=== PATIENT | male | born 1940 | race African-American/Black ===

== ENCOUNTER 2016-09-29 14:44 | Inpatient (IN) ==
[2016-09-29] MEDS ORDERED: SODIUM CHLORIDE 0.9% 1,000 ML IV STA (15:20)
[2016-09-29] MEDS ORDERED: ONDANSETRON 4 MG/2 ML VIAL IV STA (15:20)
[2016-09-29] MEDS ORDERED: ONDANSETRON 4 MG/2 ML VIAL ONE (15:24)
--- NOTE | 2016-09-29 16:07 | XRay Report ---
XR abdomen 2V Indication: Nausea, vomiting and diarrhea. Abdomen 3 views: Surgical clips left upper quadrant noted. Normal amount of stool and gas shown in the colon. No small bowel dilatation. No evidence of free air. Severe degenerative changes lumbar spine noted. Impression: Nonspecific bowel gas pattern. PROCEDURE INTERPRETED AT [facility] DEPARTMENT OF RADIOLOGY Final Report Signed by: Garth Mao M.D.
--- NOTE | 2016-09-29 16:11 | Emergency Department Note ---
Marlene Betancourt Gwan, am scribing for, and in the presence of, Armin Mendoza MD 15:11 . Kelly Betancourt James D, MD, personally performed the services described in this documentation, ascribed by Drea Rosario in my presence, and it is both accurate and complete 611 . Arrival - Arrival ED Nursing Triage Note: Nausea and vomiting onset approx 1315 - pt denies abd pain - pt states that he has vomited x 3 - denies any nausea at present Mode of Arrival: Stretcher Limitations: No Limitations Source: Patient, Old Records Reviewed, RN Notes Reviewed - History of Present Illness Onset (ago): hour(s) Consistency: constant Severity: moderate <Armin Mendoza - Last Filed: 09/29/16 18:02> <Wilfrid Woodruff - Last Filed: 09/29/16 20:13> - Arrival Chief Complaint: Nausea/Vomiting/Diarrhea Stated Complaint: nausea and vomiting - History of Present Illness HPI Narrative: Patient is a 76 y/o male who presents to the ED with a c/o N/V with an onset 1315 today. He noted that he feels as if the room is spinning. 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 continued to state that pt called her and stated that he was feeling sick prompting their visit to the ED for further evaluation. Family stated that pt c/o abd pain but while in ED pt denies any abd pain. Patient denies that this has never happened before. Pt is followed by Dr. Carrillo. (Drea Rosario) Patient is a 76 y/o male who presents to the ED with a c/o N/V with an onset 1315 today. He noted that he feels as if the room is spinning. 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 continued to state that pt called her and stated that he was feeling sick prompting their visit to the ED for further evaluation. Family stated that pt c/o abd pain but while in ED pt denies any abd pain. Patient denies that this has never happened before. Pt is followed by Dr. Carrillo. (Armin Mendoza) Allergies/Adverse Reactions: Allergies Allergy/AdvReac Type Severity Reaction Status Date / Time Penicillins Allergy RASH Verified 09/29/16 14:56 Home Medications: Home Medications Medication Instructions Recorded Confirmed Type Atorvastatin [Lipitor] 40 mg PO BEDTIME 09/29/16 09/29/16 History Cetirizine Tab [ZyrTEC Tab] 10 mg PO DAILY PRN 09/29/16 09/29/16 History Furosemide [Furosemide] 40 mg PO BID 09/29/16 09/29/16 History Glyburide/Metformin HCl 2 each PO BID 09/29/16 09/29/16 History [Glyburide-Metformin 5-500 mg] Lisinopril [Lisinopril] 20 mg PO DAILY 09/29/16 09/29/16 History Potassium Chloride 20 meq PO BID 09/29/16 09/29/16 History Spironolactone [Spironolactone] 12.5 mg PO DAILY 09/29/16 09/29/16 History Review of System - Review of System 12 point system: reviewed and no additional remarkable complaints except as stated - Review of System Constitutional: Absent: chills, fever Eyes: Absent: discharge Head/Ears/Nose/Throat: Absent: earache Respiratory: Absent: cough Cardiovascular: Absent: chest pain Gastrointestinal: Present: as per HPI, nausea, vomiting. Absent: abdominal pain , diarrhea Genitourinary male: Absent: urgency, dysuria Musculoskeletal: Absent: arm pain, back pain, leg pain, neck pain Skin: Absent: rash, lesions Neurological: Absent: headache, weakness <Armin Mendoza - Last Filed: 09/29/16 18:02> Medical,Surgical,& Family Hx - Medical History Cardio: History of: CHF, Hypertension Endocrine: History of: Diabetes Mellitus (NIDDM), Dyslipidemia - Social History Smoking Status: Unknown if ever smoked Frequency of Alcohol Use: None Type of Drug Use: None <Armin Mendoza - Last Filed: 09/29/16 18:02> Exam <Armin Mendoza - Last Filed: 09/29/16 18:02> <Wilfrid Woodruff - Last Filed: 09/29/16 20:13> Physical Examination: GENERAL: This is a black male in no apparent distress. VITAL SIGNS: HEENT: Head is normocephalic and atraumatic. Pupils are equally round and reactive to light. Extraocular movement are intact. TMs are clear bilaterally peer oropharynx is benign with moist mucous membranes. NECK: Neck is soft and supple without tenderness. There are no masses. There is no lymphadenopathy. LUNGS: Lungs are clear to auscultation bilaterally. Chest rises symmetrically. There is no chest wall tenderness. CV: Heart is regular rate and rhythm without murmurs, rubs, or gallops. ABDOMEN: Abdomen is soft, non-tender to palpation. There are no abnormal masses palpated. There is no organomegaly. Bowel sounds are present and active. SKIN: Skin is warm and dry. No rash. EXTREMITIES: Patient has full range of motion without tenderness. There is no pedal edema. NEUROLOGIC: Awake, alert, and oriented x4. Cranial nerves II through XII are grossly intact. There are no motorsensory deficits. PSYCHIATRIC: Normal affect. Normal mood. (Drea Rosario) GENERAL: This is a black male in no apparent distress. VITAL SIGNS: HEENT: Head is normocephalic and atraumatic. Pupils are equally round and reactive to light. Extraocular movement are intact. TMs are clear bilaterally peer oropharynx is benign with moist mucous membranes. NECK: Neck is soft and supple without tenderness. There are no masses. There is no lymphadenopathy. LUNGS: Lungs are clear to auscultation bilaterally. Chest rises symmetrically. There is no chest wall tenderness. CV: Heart is regular rate and rhythm without murmurs, rubs, or gallops. ABDOMEN: Abdomen is soft, non-tender to palpation. There are no abnormal masses palpated. There is no organomegaly. Bowel sounds are present and active. SKIN: Skin is warm and dry. No rash. EXTREMITIES: Patient has full range of motion without tenderness. There is no pedal edema. NEUROLOGIC: Awake, alert, and oriented x4. Cranial nerves II through XII are grossly intact. There are no motorsensory deficits. PSYCHIATRIC: Normal affect. Normal mood. (Armin Mendoza) Vital Signs: Vital Signs Temperature 100.9 F H 09/29/16 15:04 Pulse Rate 123 H 09/29/16 18:30 Respiratory Rate 20 09/29/16 18:30 Blood Pressure 109/71 09/29/16 18:30 O2 Sat by Pulse Oximetry 90 L 09/29/16 18:30 Course <Armin Mendoza - Last Filed: 09/29/16 18:02> - Reevaluation(s) Time: 19:22 - Consultations Time: 19:21 Time: 20:05 Time: 20:12 <Wilfrid Woodruff - Last Filed: 09/29/16 20:13> - Reevaluation(s) Reevaluation #1: The patient's legs are fairly swollen with left slightly larger than right and small amount of serosanguineous drainage on the left sock. The legs are reddened and edematous suggesting cellulitis which may be the etiology of the fever. (Wilfrid Woodruff) - Consultations Consultation #1: We will admit to the hospitalist service. The patient does see Dr. Thierry Puentes for his legs and a consult may be placed to him at the discretion of the hospitalist service. (Wilfrid Woodruff) Consultation #2: No joint on the hospitalist. I am going to admit to Dr. Calles who has been 1 of the day hospitalists today. (Wilfrid Woodruff) Consultation #3: In the process of admitting the patient, Dr. Avalos appeared and said that the patient would indeed go to Dr. Calles. I finished up some baseline orders. He is seeing the patient now. (Wilfrid Woodruff) Results - Labs CBC & BMP: 09/29/16 16:46 09/29/16 16:46 Lab Results: I have reviewed the patients labs - Diagnostic Findings Procedure: Abdominal x-ray: report reviewed by me, image reviewed by me ( Nonspecific bowel gas pattern. ), CT: report reviewed by me, image reviewed by me (Head: Generalized atrophy and prominent white matter changes likely attributable to chronic microvascular ischemia. Polypoid formation in the right ethmoid sinus. ) <Armin Mendoza - Last Filed: 09/29/16 18:02> - Labs CBC & BMP: 09/29/16 16:46 09/29/16 16:46 Lab Results: I have reviewed the patients labs <Wilfrid Woodruff - Last Filed: 09/29/16 20:13> - Labs Labs: Lab Results WBC 12.4 T/CUMM (4-12) H 09/29/16 16:46 RBC 4.79 MC/CUMM (3.8-5.5) 09/29/16 16:46 Hgb 13.7 GM/DL (14.0-18.0) L 09/29/16 16:46 Hct 40.5 VOL% (42.0-52.0) L 09/29/16 16:46 MCV 84.6 FL (87-102) L 09/29/16 16:46 MCH 29 PG (27-34) 09/29/16 16:46 MCHC 33.8 GM/DL (32-36) 09/29/16 16:46 RDW 13.6 % (9.3-17.3) 09/29/16 16:46 Plt Count 250 T/CUMM (130-400) 09/29/16 16:46 MPV 10.7 FL (9.6-12.0) 09/29/16 16:46 Neut % (Auto) 87.7 % (38.7-73.9) H 09/29/16 16:46 Lymph % (Auto) 4.0 % (21.2-54.2) L 09/29/16 16:46 Murray % (Auto) 6.2 % (1.7-12.7) 09/29/16 16:46 Eos % (Auto) 0.5 % (0.00-10.9) 09/29/16 16:46 Baso % (Auto) 0.5 % (0.0-0.8) 09/29/16 16:46 Neut # (Auto) 10.8 10*3/uL (1.4-7.4) H 09/29/16 16:46 Lymph # (Auto) 0.5 10*3/uL (1.4-4.0) L 09/29/16 16:46 Murray # (Auto) 0.8 10*3/uL (0.11-0.8) 09/29/16 16:46 Eos # (Auto) 0.1 10*3/uL (0.0-0.87) 09/29/16 16:46 Baso # (Auto) 0.1 10*3/uL (0.0-0.2) 09/29/16 16:46 Total Counted 100 09/29/16 16:46 Immature Gran % 1.1 % 09/29/16 16:46 Nucleated RBC % 0.0 /100WBC 09/29/16 16:46 Immature Gran # 0.14 # 09/29/16 16:46 Segmented Neutrophils 93 % (50-85) H 09/29/16 16:46 Band Neutrophils 2 % (0-10) 09/29/16 16:46 Lymphocytes 4 % (20-55) L 09/29/16 16:46 Monocytes 1 % (2-15) L 09/29/16 16:46 Nucleated RBCs # 0.00 10*3/uL 09/29/16 16:46 Platelet Estimate Normal 09/29/16 16:46 Sodium 138 MMOL/L (136-145) 09/29/16 16:46 Potassium 4.0 MMOL/L (3.5-5.1) 09/29/16 16:46 Chloride 101 MMOL/L (98-107) 09/29/16 16:46 Carbon Dioxide 29 MMOL/L (21-32) 09/29/16 16:46 Anion Gap 12.0 MMOL/L (5.0-15.0) 09/29/16 16:46 BUN 11 MG/DL (7-18) 09/29/16 16:46 Creatinine 1.00 MG/DL (0.70-1.30) 09/29/16 16:46 GFR Calculation 113 ML/MIN 09/29/16 16:46 BUN/Creatinine Ratio 11.00 RATIO (6.00-20.00) 09/29/16 16:46 Glucose 212 MG/DL (74-106) H 09/29/16 16:46 Calculated Osmolality 279.7 MOS/KG (273-304) 09/29/16 16:46 Lactic Acid 1.7 MMOL/L (0.4-2.0) 09/29/16 18:11 Calcium 9.3 MG/DL (8.5-10.1) 09/29/16 16:46 Total Bilirubin 0.80 MG/DL (0.2-1.0) 09/29/16 16:46 AST 14 U/L (0-37) 09/29/16 16:46 ALT 23 U/L (16-61) 09/29/16 16:46 Alkaline Phosphatase 97 U/L (45-117) 09/29/16 16:46 Total Protein 6.5 G/DL (6.4-8.3) 09/29/16 16:46 Albumin 3.3 G/DL (3.4-5.0) L 09/29/16 16:46 Globulin 3.2 G/DL (2.3-3.5) 09/29/16 16:46 Albumin/Globulin Ratio 1.0 RATIO (1.1-2.2) L 09/29/16 16:46 Urine Color Yellow (Yellow) 09/29/16 18:29 Urine Appearance Clear (Clear) 09/29/16 18:29 Urine pH 5.0 (4.5-8.0) 09/29/16 18:29 Ur Specific [place] 1.009 (1.001-1.035) 09/29/16 18:29 Urine Protein Negative MG/DL 09/29/16 18:29 Urine Glucose (UA) 50 mg/dL (Negative) 09/29/16 18:29 Urine Ketones Negative mg/dL (Negative) 09/29/16 18:29 Urine Blood Small mg/dL (Negative) 09/29/16 18:29 Urine Nitrate Negative (Negative) 09/29/16 18:29 Urine Bilirubin Negative mg/dL (Negative) 09/29/16 18:29 Urine Urobilinogen < 2.0 EU/DL (0.2-1.0) H 09/29/16 18:29 Urine Leukocytes Negative Pon[place]/ul (Negative) 09/29/16 18:29 Urine RBC <1 /HPF (0-4) 09/29/16 18:29 Urine Mucus Occasional /LPF (Occasional) 09/29/16 18:29 Ur Culture Indicated? Not indicated 09/29/16 18:29 (Wilfrid Woodruff) Disposition Case discussed with: patient <Armin Mendoza - Last Filed: 09/29/16 18:02> Time of Disposition: 19:22 <Wilfrid Woodruff - Last Filed: 09/29/16 20:13> Clinical Impression: Nausea and vomiting, Fever, Altered mental status, Cellulitis Disposition: Still a Patient Condition: Stable
--- NOTE | 2016-09-29 16:15 | CT Report ---
CT of the head without contrast. Indication: Vertigo. No prior studies. There is heavy calcific plaque present within the internal carotid arteries. There is polypoid mucosal thickening within the right ethmoid sinuses. The calvarium is intact. The internal auditory canals are of normal diameter. There is generalized prominence of the ventricles and sulci consistent with atrophy of aging. There is a partial empty sella. There are prominent areas of low density in the periventricular white matter, likely attributable to chronic microvascular ischemia. No mass effect or midline shift. No cortical infarct is seen at this time. Impression: Generalized atrophy and prominent white matter changes likely attributable to chronic microvascular ischemia. Polypoid formation in the right ethmoid sinus. The CT exam was performed using one or more of the following dose reduction techniques: Automated exposure control, adjustment of the mA and/or kV according to patient size, or use of iterative reconstruction technique. PROCEDURE INTERPRETED AT [facility] DEPARTMENT OF RADIOLOGY Final Report Signed by: Dr. Amna Leong
[2016-09-29 17:04] LABS: Basophils # 0.1 10*3/uL (0.0-0.2); Basophils % 0.5 % (0.0-0.8); Eosinophils # 0.1 10*3/uL (0.0-0.87); Eosinophils % 0.5 % (0.00-10.9); Hematocrit 40.5 VOL% (42.0-52.0); Hemoglobin 13.7 GM/DL (14.0-18.0); Immature Granulocytes % 1.1 %; Immature Granulocytes Absolute 0.14 #; Lymphocytes # 0.5 10*3/uL (1.4-4.0); Mean Corpuscular HGB Conc 33.8 GM/DL (32-36); Mean Corpuscular Hemoglobin 29 PG (27-34); Mean Corpuscular Volume 84.6 FL (87-102); Mean Platelet Volume 10.7 FL (9.6-12.0); Monocytes # 0.8 10*3/uL (0.11-0.8); Monocytes % 6.2 % (1.7-12.7); Neutrophils # 10.8 10*3/uL (1.4-7.4); Neutrophils % 87.7 % (38.7-73.9); Platelet Count 250 T/CUMM (130-400); Red Blood Count 4.79 MC/CUMM (3.8-5.5); Red Cell Distribution Width 13.6 % (9.3-17.3); White Blood Count 12.4 T/CUMM (4-12)
[2016-09-29 17:31] LABS: Albumin 3.3 G/DL (3.4-5.0); Bilirubin,Total 0.8 MG/DL (0.2-1.0); Calcium 9.3 MG/DL (8.5-10.1); Osmolality,Calculated 279.7 MOS/KG (273-304); Total Protein 6.5 G/DL (6.4-8.3)
[2016-09-29] MEDS ORDERED: ACETAMINOPHEN 500 MG TABLET ONE (17:40)
[2016-09-29] MEDS ORDERED: ACETAMINOPHEN 500 MG TABLET PO STA (17:57)
[2016-09-29 18:42] LABS: Apearance,Urine CLEAR (Clear); Bilirubin,Urine Negative (Negative); Blood, Urine Small mg/dL (Negative); Glucose,Urine (UA) 50 mg/dL (Negative); Ketones,Urine Negative (Negative); Mucus,Urine Occasional /LPF (Occasional); Nitrite,Urine Negative (Negative); Protein,Urine Negative; RBC,Urine <1 /HPF (0-4); Urine Color Yellow (Yellow); Urine Specific Gravity 1.009 (1.001-1.035); Urine Urobilinogen < 2.0 EU/DL (0.2-1.0)
[2016-09-29 18:44] LABS: Band Neutrophils 2 % (0-10); Lymphocytes 4 % (20-55); Platelet Estimate Normal; Segmented Neutrophils 93 % (50-85); Total Cells Counted 100
--- NOTE | 2016-09-29 18:51 | XRay Report ---
Exam: XR chest 1V portable Date: 09/29/2016 6:03 PM Indication: Fever Comparison: None Technical: AP portable Findings: Atelectatic change present in the right base with some small nodes in the right infrahilar region. Athletic change present left base. External cardiac leads are present. Arthritic change present over the shoulders right greater than left. No pneumothorax Impression: 1. Bibasilar atelectatic change and tiny effusions 2. Mild cardiomegaly and calcified nodes in the right perihilar region. PROCEDURE INTERPRETED AT [facility] DEPARTMENT OF RADIOLOGY Final Report Signed by: Dr. Andrew Ling
[2016-09-29] MEDS ORDERED: IBUPROFEN 800 MG TABLET ONE (19:15)
[2016-09-29] MEDS ORDERED: IBUPROFEN 800 MG TABLET PO STA (19:20)
[2016-09-29] MEDS ORDERED: DEXTROSE 50% 25 GM/50 ML VIAL IV PRN (20:06)
[2016-09-29] MEDS ORDERED: GLUCAGON 1 MG VIAL IM PRN (20:06)
[2016-09-29] MEDS ORDERED: diphenhydrAMINE CAP 25 MG CAPSULE PO PRN (20:06)
[2016-09-29] MEDS ORDERED: DOCUSATE SODIUM 100 MG CAPSULE PO PRN (20:06)
[2016-09-29] MEDS ORDERED: ZALEPLON 5 MG CAPSULE PO PRN (20:06)
[2016-09-29] MEDS ORDERED: BISACODYL 5 MG TABLET PO PRN (20:06)
[2016-09-29] MEDS ORDERED: ONDANSETRON 4 MG/2 ML VIAL IV PRN (20:06)
--- NOTE | 2016-09-29 20:51 | Hospitalist History & Physical ---
Assessment and Plan (1) Stasis dermatitis of both legs Status: Acute Assessment and plan: Bedrest with leg raising would help with the swelling. Patient has long been followed by surgery. The possible need to see him again in the hospital if the condition does not improve. Encourage aggressive care with the stasis dermatitis using emollients. Try to disquamate him as much as possible. Current Visit: Yes (2) Nausea and vomiting Status: Acute Assessment and plan: Use of Zofran for nausea and vomiting or is in the hospital. This does not seem to be a major problem at the time of my assessment. Orders for Zofran already been put in by Dr. Woodruff Current Visit: Yes (3) Fever Status: Acute Assessment and plan: Follow the fever curve. Patient will be on antibiotics to cover the cellulitis. Current Visit: Yes (4) Cellulitis Status: Acute Assessment and plan: This is Bisno's syndrome complicated chronic leg edema. Patient has severe stasis dermatitis alongside this. We need to broaden antibiotics skin care and reassess the patient in the coming 2448 hrs. Duration of hospital stay should be at least 3 days. Current Visit: Yes (5) Diabetes mellitus type 2 in obese Status: Acute Assessment and plan: With the patient on 1800 ADA diet. Accu-Cheks q. before meals and at bedtime. Resume home medications. We will can use intermediate insulin coverage for mealtime blood sugar checks. I did not try to ask the patient about his home diet is not very conversant about it and I also do not believe that he never been talked to before. Noncompliance with her dietary discipline is a possibility. Current Visit: Yes History of Present Illness Chief complaint: Nausea vomiting abdominal pain and fever History of present illness: Mr. Chaves is a 76 year old male who presents to the ED with a c/o N/V with an onset 1315 today. He noted that he feels as if the room is spinning. 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 continued to state that pt called her and stated that he was feeling sick prompting their visit to the ED for further evaluation. Family stated that pt c/o abd pain but while in ED pt denies any abd pain. Patient denies that this has never happened before. Pt is followed by Dr. Carrillo. On assessment at the bedside and noticed that the patient is incontinent of urine and states that he could not urinate in a jug this why he wetted himself. Denies any headaches denies and ongoing dizziness that is at this point even though that was reported on presenting illness the emergency room. I could not do a Oxford-Hallpike maneuver because the patient is quite incoordinated very elevated. There is slight concern of possibility of benign paroxysmal positional vertigo. Patient is on Zyrtec at home suggesting possibility of ongoing allergy issues but she is also on Spironolactone diuretic that can instigated benign paroxysmal positional vertigo. Patient has chronic leg edema with severe stasis dermatopathy and there is suggestion of cellulitis his lower extremities. His could explain the fever as well as elevated white count. I discussed the case with Dr. Woodruff the attending physician in the emergency who 100 the patient to the service. His concerns are the same. Home Medications Medication Instructions Recorded Confirmed Type Atorvastatin [Lipitor] 40 mg PO BEDTIME 09/29/16 09/29/16 History Cetirizine Tab [ZyrTEC Tab] 10 mg PO DAILY PRN 09/29/16 09/29/16 History Furosemide [Furosemide] 40 mg PO BID 09/29/16 09/29/16 History Glyburide/Metformin HCl 2 each PO BID 09/29/16 09/29/16 History [Glyburide-Metformin 5-500 mg] Lisinopril [Lisinopril] 20 mg PO DAILY 09/29/16 09/29/16 History Potassium Chloride 20 meq PO BID 09/29/16 09/29/16 History Spironolactone [Spironolactone] 12.5 mg PO DAILY 09/29/16 09/29/16 History Allergies Allergy/AdvReac Type Severity Reaction Status Date / Time Penicillins Allergy RASH Verified 09/29/16 14:56 Medical,Surgical,& Family Hx - Medical History Cardio: History of: CHF, Hypertension Endocrine: History of: Diabetes Mellitus (NIDDM), Dyslipidemia - Social History Smoking Status: Unknown if ever smoked Frequency of Alcohol Use: None Type of Drug Use: None Review of systems: 12 point system assessment is done. Significant for the chief complaint history of presenting illness in the past medical history. Was turns of the most of these points will be the cellulitis skin soft tissue infection possibly bacteremia. Exam - Constitutional Vitals: Period Temp Pulse Resp BP Sys/Redding Pulse Ox Last 24 Hr 100.9 F-100.9 F 114-123 20-20 109-181/65-91 90-95 General appearance: over weight - Head Head exam: Present: normocephalic, atraumatic - Eye Eye exam: Present: EOMI Pupils: Present: NUBIA - ENT ENT exam: Present: normal oropharynx - Neck Neck exam: Present: normal inspection, other (Supple neck midline trachea no adenopathy no thyromegaly) - Respiratory Respiratory exam: Present: clear to auscultation bilaterally, other (End expiratory rales are heard bibasilarly) - Cardiovascular Cardiovascular exam: Present: other (EKG will be done patient has regular rhythm with occasional ectopy could be having PVCs or PACs with aberrant conduction) - GI/Abdominal GI/Abdominal exam: Present: normal bowel sounds, soft, other (No guarding) - Extremities Exam Extremities exam: Present: other (Significant stasis dermatitis chronic leg edema with wound VAC change to the skin evidence of redness suggesting cellulitis) - Neurological Exam Neurological exam: Present: alert, oriented X3, CN II-XII intact - Psychiatric Psychiatric exam: Present: normal affect, normal mood - Skin Skin exam: Present: normal color, warm, dry Results - Labs CBC & BMP: 09/29/16 16:46 09/29/16 16:46 Lab Results: I have reviewed the past 24 hour labs
[2016-09-29] MEDS: LEVOFLOXACIN INJ 750 MG in PREMIX 1 EACH IV SCH (23:01)
[2016-09-29] MEDS: INSULIN LISPRO 100 UNIT/ML SUBCUT SCH (23:04)
[2016-09-30] MEDS: VANCOMYCIN INJ 1,750 MG in SODIUM CHLORIDE 0.9% 500 ML IV SCH ×3 (01:12→22:24)
[2016-09-30 05:35] LABS: Basophils # 0.1 10*3/uL (0.0-0.2); Basophils % 0.6 % (0.0-0.8); Eosinophils # 0.3 10*3/uL (0.0-0.87); Eosinophils % 3.2 % (0.00-10.9); Hematocrit 38.2 VOL% (42.0-52.0); Hemoglobin 12.5 GM/DL (14.0-18.0); Immature Granulocytes % 0.6 %; Immature Granulocytes Absolute 0.06 #; Lymphocytes # 0.7 10*3/uL (1.4-4.0); Lymphocytes % 6.9 % (21.2-54.2); Mean Corpuscular HGB Conc 32.7 GM/DL (32-36); Mean Corpuscular Hemoglobin 28 PG (27-34); Mean Corpuscular Volume 85.8 FL (87-102); Mean Platelet Volume 11.2 FL (9.6-12.0); Monocytes # 0.8 10*3/uL (0.11-0.8); Monocytes % 8.4 % (1.7-12.7); Neutrophils # 7.8 10*3/uL (1.4-7.4); Neutrophils % 80.3 % (38.7-73.9); Platelet Count 231 T/CUMM (130-400); Red Blood Count 4.45 MC/CUMM (3.8-5.5); Red Cell Distribution Width 13.7 % (9.3-17.3); White Blood Count 9.8 T/CUMM (4-12)
[2016-09-30 06:01] LABS: Calcium 8.6 MG/DL (8.5-10.1); Osmolality,Calculated 283.3 MOS/KG (273-304); Potassium 3.9 MMOL/L (3.5-5.1)
--- NOTE | 2016-09-30 09:50 | Hospitalist Progress Note ---
Assessment and Plan (1) Nausea and vomiting Status: Acute Assessment and plan: Better after multiple bowel movements overnight Current Visit: Yes (2) Fever Status: Acute Assessment and plan: Believed to be secondary to cellulitis Current Visit: Yes (3) Cellulitis Status: Acute Assessment and plan: Unsure about this BLE changes appear very chronic A little warm but equal on both sides Difficult to gauge from family how different his legs look today compared to today after antibiotics Followed in clinic by Dhaval weekly, will get assistance Current Visit: Yes (4) Stasis dermatitis of both legs Status: Acute Assessment and plan: Followed in clinic by Dhaval weekly, will get assistance Current Visit: Yes (5) Diabetes mellitus type 2 in obese Status: Acute Assessment and plan: SSI Current Visit: Yes Hospitalist: Subjective Interval history: No acute events overnight. Afebrile since yesterday evening. He denies any pain. Reports that he feels better today. Exam - Constitutional Vitals: Period Temp Pulse Resp BP Sys/[place] Pulse Ox Last 24 Hr 98.4 F-102.4 F 100-123 18-20 97-181/57-91 89-96 General appearance: over weight - Head Head exam: Present: normocephalic, atraumatic - Eye Eye exam: Present: EOMI Pupils: Present: NUBIA - ENT ENT exam: Present: normal exam - Neck Neck exam: Present: normal inspection - Respiratory Respiratory exam: Present: clear to auscultation bilaterally. Absent: rhonchi, wheezes - Cardiovascular Cardiovascular exam: Present: regular rate and rhythm - GI/Abdominal GI/Abdominal exam: Present: normal bowel sounds, soft. Absent: tenderness, rebound - Extremities Exam Extremities exam: Present: normal inspection - Back Exam Back exam: Present: normal inspection - Neurological Exam Neurological exam: Present: alert, oriented X3 - Psychiatric Psychiatric exam: Present: normal affect, normal mood - Skin Skin exam: Present: warm, intact Results - Labs CBC & BMP: 09/30/16 04:38 09/30/16 04:38
[2016-09-30] MEDS ORDERED: CHLORHEXIDINE 4% SOLN 118 ML BOTTLE TOP ONE (09:59)
[2016-09-30] MEDS: PANTOPRAZOLE 40 MG TABLET PO SCH (10:03)
[2016-09-30] MEDS: INSULIN LISPRO 100 UNIT/ML SUBCUT SCH ×4 (10:04→20:32)
--- NOTE | 2016-09-30 10:04 | General Surgery Consult Note ---
Assessment and Plan - Time spent with patient Time spent with patient: Less than 30 minutes (1) Stasis dermatitis of both legs Status: Acute Assessment and plan: Impression: Chronic venous stasis disease of the legs with ulcer left and dermatitis compressive therapy Current Visit: Yes (2) Cellulitis Status: Acute Assessment and plan: Questional cellulitis of the left leg Plan. Local compressive treatement and observation Current Visit: Yes Qualifiers: Site of cellulitis: extremity (3) Diabetes mellitus type 2 in obese Status: Acute Assessment and plan: Insulin dependent diabetis Need good control. Current Visit: Yes History of Present Illness Chief complaint: Chronic swelling of the legs left greather than right History of present illness: Mr. Chaves is a 76 year old male AA who has a long history of chronic venous stasis disease ofthe legs with ulcers of the left. Has been seen [facility] by Dr. Puentes with good healing. Asked to see for possible cellulits of the left leg. He denies any rest pain symptoms. Home Medications Medication Instructions Recorded Confirmed Type Atorvastatin [Lipitor] 40 mg PO BEDTIME 09/29/16 09/29/16 History Cetirizine Tab [ZyrTEC Tab] 10 mg PO DAILY PRN 09/29/16 09/29/16 History Furosemide [Furosemide] 40 mg PO BID 09/29/16 09/29/16 History Glyburide/Metformin HCl 2 each PO BID 09/29/16 09/29/16 History [Glyburide-Metformin 5-500 mg] Lisinopril [Lisinopril] 20 mg PO DAILY 09/29/16 09/29/16 History Potassium Chloride 20 meq PO BID 09/29/16 09/29/16 History Spironolactone [Spironolactone] 12.5 mg PO DAILY 09/29/16 09/29/16 History Allergies Allergy/AdvReac Type Severity Reaction Status Date / Time Penicillins Allergy RASH Verified 09/29/16 14:56 Medical,Surgical,& Family Hx - Medical History Cardio: History of: CHF, Hypertension Endocrine: History of: Diabetes Mellitus (IDDM) ("i use it if i think i need it "), Diabetes Mellitus (NIDDM), Dyslipidemia - Social History Smoking Status: Unknown if ever smoked Frequency of Alcohol Use: None Type of Drug Use: None - Musculoskeletal Musculoskeletal: Present: other (mcdaniel to the legs when younger) Exam - Constitutional Vitals: Period Temp Pulse Resp BP Sys/[place]ding Pulse Ox Last 24 Hr 98.4 F-102.4 F 100-123 18-20 97-181/57-91 89-96 General appearance: no acute distress - Head Head exam: Present: normal inspection - ENT ENT exam: Present: normal exam - Neck Neck exam: Present: normal inspection - Respiratory Respiratory exam: Present: clear to auscultation bilaterally, rales - Cardiovascular Cardiovascular exam: Present: RRR - GI/Abdominal GI/Abdominal exam: Present: hypoactive bowel sounds, soft - Extremities Exam Extremities exam: Present: other (Left leg is larger than the right with scaling. Slightly warm but no erythemia noted. Old ulcer medially. Right with less swelling and chronic stasis changes.) - Back Exam Back exam: Present: normal inspection - Neurological Exam Neurological exam: Present: alert, oriented X3, CN II-XII intact - Skin Skin exam: Present: normal color, warm, dry Results - Labs CBC & BMP: 09/30/16 04:38 09/30/16 04:38 Lab Results: I have reviewed the past 24 hour labs
[2016-09-30] MEDS: SKIN HEALING OINT (AQUAPHOR) 50 GM TUBE TOP SCH ×2 (10:16→20:27)
--- NOTE | 2016-09-30 11:07 | General Surg History&Physical ---
Assessment and Plan (1) Stasis dermatitis of both legs Status: Acute Assessment and plan: Impression: Chronic venous stasis disease of the legs with ulcer left and dermatitis compressive therapy Current Visit: Yes (2) Cellulitis Status: Acute Assessment and plan: Questional cellulitis of the left leg Plan. Local compressive treatement and observation Current Visit: Yes Qualifiers: Site of cellulitis: extremity (3) Diabetes mellitus type 2 in obese Status: Acute Assessment and plan: Insulin dependent diabetis Need good control. Current Visit: Yes History of Present Illness Chief complaint: Painful swelling perirectal area. History of present illness: Mr. Chaves is a 76 year old male -[place] male who is diabetic on oral medications who had the onset about 2-3 days ago some painful swelling in the perirectal area. This is gotten larger and much more tender at this time and patient's has a clear perirectal abscess. He had eaten this morning so we will set him up as an outpatient to get this surgery done. Given him instructions and will try to set him up get this taken care of Home Medications Medication Instructions Recorded Confirmed Type Atorvastatin [Lipitor] 40 mg PO BEDTIME 09/29/16 09/29/16 History Cetirizine Tab [ZyrTEC Tab] 10 mg PO DAILY PRN 09/29/16 09/29/16 History Furosemide [Furosemide] 40 mg PO BID 09/29/16 09/29/16 History Glyburide/Metformin HCl 2 each PO BID 09/29/16 09/29/16 History [Glyburide-Metformin 5-500 mg] Lisinopril [Lisinopril] 20 mg PO DAILY 09/29/16 09/29/16 History Potassium Chloride 20 meq PO BID 09/29/16 09/29/16 History Spironolactone [Spironolactone] 12.5 mg PO DAILY 09/29/16 09/29/16 History Allergies Allergy/AdvReac Type Severity Reaction Status Date / Time Penicillins Allergy RASH Verified 09/29/16 14:56 Medical,Surgical,& Family Hx - Medical History Cardio: History of: CHF, Hypertension Endocrine: History of: Diabetes Mellitus (IDDM) ("i use it if i think i need it "), Diabetes Mellitus (NIDDM), Dyslipidemia - Social History Smoking Status: Unknown if ever smoked Frequency of Alcohol Use: None Type of Drug Use: None Exam - Constitutional Vitals: Period Temp Pulse Resp BP Sys/Redding Pulse Ox Last 24 Hr 98.4 F-102.4 F 100-123 18-20 97-181/57-91 89-96 General appearance: mild distress - Head Head exam: Present: normal inspection - ENT ENT exam: Present: normal exam - Neck Neck exam: Present: normal inspection - Respiratory Respiratory exam: Present: clear to auscultation bilaterally, rales 12 point system: reviewed and no additional remarkable complaints except as stated Quality Measures - VTE Contraindication to Pharmacological VTE Prophylaxis: Clinical assessment deems Pt at low risk, no prophalaxis needed Results - Labs CBC & BMP: 09/30/16 04:38 09/30/16 04:38
--- NOTE | 2016-09-30 11:14 | EKG Report ---
Stationary ECG Study [facility] Test Date: 09/30/2016 11:15:23 AM Pat Name: ALEXANDER MONTERO Department: Room: 240 Gender: M Housekeeper/Laundry Assistant: DOMINIC : 1940 Requested by: Wilfrid Guerrero Order Number: [id number] Reading MD: GLO KATZ Intervals [place] Rate: 100 P: 57 [place]: 149 QRS: 70 QRSD: 92 T: -21 QT: 322 QTc: 379 Interpretive Statements SINUS TACHYCARDIA Electronically Signed On 10-01-16 15:23:05 CDT by GLO KATZ [email or web address]
--- NOTE | 2016-09-30 11:59 | XRay Report ---
Exam: Chest 2 views Date: September 30, 2016 at 11:41 AM Comparison: Chest one view portable September 29, 2016 Reason: Preoperative respiratory evaluation, perirectal abscess Findings: The cardiac silhouette is upper normal in size. There is persistent elevation of the right hemidiaphragm and minimal atelectasis at both lung bases. No pneumothorax or pleural effusion is identified. Calcified right hilar lymph nodes are present. No acute osseous process is seen. There are surgical clips within the right upper abdomen, suggesting cholecystectomy. Impression: There is persistent elevation of the right hemidiaphragm and minimal atelectasis at both lung bases. PROCEDURE INTERPRETED AT [facility] DEPARTMENT OF RADIOLOGY Final Report Signed by: Dr. Sylvia Nicole
--- NOTE | 2016-09-30 13:53 | Ultrasound Report ---
Exam: Bilateral lower extremity venous Doppler ultrasound Comparison: 07/22/2016 Clinical history: Venous stasis disease Technique: Duplex scan of the lower extremity veins using B-mode/grayscale scaled imaging and Doppler spectral analysis and color flow. Findings: Major venous structures of the lower extremities demonstrate a normal course and caliber. Normal color-flow study and spectral analysis. There is normal compression and augmentation of bilateral common femoral, superficial femoral and popliteal veins. The proximal bilateral greater saphenous veins appear to be patent. Impression: No evidence to suggest deep venous thrombosis within either lower extremity. Ultrasound images were captured and stored. PROCEDURE INTERPRETED AT [facility] DEPARTMENT OF RADIOLOGY Final Report Signed by: Dr. Melia Ireland
[2016-09-30] MEDS: LEVOFLOXACIN INJ 750 MG in PREMIX 1 EACH IV SCH (20:27)
[2016-10-01 06:25] LABS: Basophils % 0.5 % (0.0-0.8); Eosinophils # 0.5 10*3/uL (0.0-0.87); Eosinophils % 6.7 % (0.00-10.9); Hematocrit 38.1 VOL% (42.0-52.0); Hemoglobin 12.6 GM/DL (14.0-18.0); Immature Granulocytes % 0.4 %; Immature Granulocytes Absolute 0.03 #; Lymphocytes # 1.1 10*3/uL (1.4-4.0); Lymphocytes % 13.3 % (21.2-54.2); Mean Corpuscular HGB Conc 33.1 GM/DL (32-36); Mean Corpuscular Hemoglobin 28 PG (27-34); Mean Corpuscular Volume 84.1 FL (87-102); Mean Platelet Volume 10.6 FL (9.6-12.0); Monocytes # 0.9 10*3/uL (0.11-0.8); Monocytes % 11.3 % (1.7-12.7); Neutrophils # 5.4 10*3/uL (1.4-7.4); Neutrophils % 67.8 % (38.7-73.9); Platelet Count 237 T/CUMM (130-400); Red Blood Count 4.53 MC/CUMM (3.8-5.5); Red Cell Distribution Width 13.5 % (9.3-17.3)
[2016-10-01 07:04] LABS: Magnesium 1.9 MG/DL (1.8-2.4); Osmolality,Calculated 275.5 MOS/KG (273-304); Potassium 3.8 MMOL/L (3.5-5.1)
[2016-10-01] MEDS: INSULIN LISPRO 100 UNIT/ML SUBCUT SCH ×2 (08:32→12:27)
[2016-10-01] MEDS: PANTOPRAZOLE 40 MG TABLET PO SCH (08:34)
[2016-10-01] MEDS: VANCOMYCIN INJ 1,750 MG in SODIUM CHLORIDE 0.9% 500 ML IV SCH (08:35)
[2016-10-01] MEDS: SKIN HEALING OINT (AQUAPHOR) 50 GM TUBE TOP SCH (08:35)
--- NOTE | 2016-10-01 09:44 | Discharge Summary ---
<Jose Gates - Last Filed: 10/01/16 09:13> Hospital Course - Hospital Course Hospital Course: This is a very pleasant 76-year-old male that presented to the ED at [facility] on September 29, 2016 for the evaluation of nausea, vomiting , abdominal pain, and fever. The patient has a medical history significant for : chronic leg edema with severe stasis dermatopathy, hypertension, non-insulin- dependent diabetes mellitus, and dyslipidemia. Patient reports no significant surgical history. The patient reported the onset of the above symptoms on the day of presentation. At the time of ED presentation; the patient reported severe vertigo. The family was present at bedside and reported that this was an acute change from the patient's normal baseline. 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 The patient was at work on the morning of presentation when the symptoms occur. He became alarmed and contacted his , who in turn transported him to the ED for further evaluation. In addition, the patient is normally followed in the wound care clinic under the direction of Dr. Guerrero. The patient was assessed at the time of ED presentation. He was noted to be febrile with a temperature of 100.9 and tachycardic with a heart rate of 123. In addition the patient was mildly hypoxic with O2 saturations at 90%. Labs were obtained; hematology panel reported a white blood cell count at 12.4, hemoglobin at 13.7, hematocrit 40.5, and platelet count at 250. Chemistry panel was obtained which reported sodium at 138, potassium of 4.0, chloride at 101,, dioxide at 29, BUN at 11, hematocrit at 1.00, and glucose at 212. Abdominal x-ray was obtained which reported a nonspecific bowel gas pattern. CT he had reported generalized atrophy and prominent white matter changes likely attributed to chronic microvascular ischemia and polypoid formation in the right ethmoid sinus. The patient was subsequently admitted to the hospitalist services for continuation of care. Rodriguez cultures were obtained and empiric antibiotics were initiated. A surgical site consult was requested at the time of admission. The patient was evaluated and recommendations were given. The patient's condition improved. He has been afebrile and experienced no significant overnight events. Today, we feel that he is indeed appropriate for discharge to follow-up with his primary care physician and the wound care clinic as indicated. He will be discharged on Bactrim DS 1 tablet twice daily 10 days for the treatment of cellulitis. Additionally, patient DOES NOT have clinical evidence of a trupti-rectal abscess. He states that he has never had any pain in the area nor painful defication. (See PE.) Discharge Plan - Discharge Medications New Bisacodyl Tab [Dulcolax Tab] 10 mg PO DAILY PRN #30 tablet PRN Reason: Constipation Docusate Sodium Cap [Colace Cap] 100 mg PO BID PRN #60 capsule PRN Reason: Constipation Pantoprazole Tab [Protonix Tab] 40 mg PO DAILY #30 tablet Skin Healing Oint (Aquaphor) [Aquaphor] 1 applic TOP BID #1 bottle Sulfameth/Trimeth 400-80 Tab [Bactrim Tab] 1 tablet PO BID #23 tablet HYDROcodone/ACETAMIN 5-325 [[place]han 5-325] 1 tablet PO Q4H PRN #20 tablet PRN Reason: Pain Mild (1-3) Continue Cetirizine Tab [ZyrTEC Tab] 10 mg PO DAILY PRN PRN Reason: Allergy Symptoms Potassium Chloride 20 meq PO BID Glyburide/Metformin HCl [Glyburide-Metformin 5-500 mg] 2 each PO BID Atorvastatin [Lipitor] 40 mg PO BEDTIME Spironolactone 12.5 mg PO DAILY Lisinopril 20 mg PO DAILY Furosemide 40 mg PO BID - Follow Up or Referral - Forms/Instructions Exam - Constitutional Vitals: Period Temp Pulse Resp BP Sys/Redding Pulse Ox Last 24 Hr 97.8 F-100.5 F 86-98 14-20 117-141/62-80 93-97 Discharge Results Procedures and tests throughout hospitalization: Pending Orders 09/29/16 18:29 Urine Culture Stat 09/29/16 18:32 Blood Culture Stat Labs on day of discharge: Labs from last 24 hours 10/01/16 10/01/16 10/01/16 08:02 06:08 06:08 WBC 8.0 RBC 4.53 Hgb 12.6 L Hct 38.1 L MCV 84.1 L MCH 28 MCHC 33.1 RDW 13.5 Plt Count 237 MPV 10.6 Neut % (Auto) 67.8 Lymph % (Auto) 13.3 L [place] % (Auto) 11.3 Eos % (Auto) 6.7 Baso % (Auto) 0.5 Neut # (Auto) 5.4 Lymph # (Auto) 1.1 L [place] # (Auto) 0.9 H Eos # (Auto) 0.5 Baso # (Auto) 0.0 Immature Gran % 0.4 Nucleated RBC % 0.0 Immature Gran # 0.03 Nucleated RBCs # 0.00 Sodium 139 Potassium 3.8 Chloride 103 Carbon Dioxide 25 Anion Gap 14.8 BUN 6 L Creatinine 0.80 GFR Calculation 135 BUN/Creatinine Ratio 7.00 Glucose 108 H POC Glucose Calculated Osmolality 275.5 Calcium 9.0 Magnesium 1.9 Vancomycin Trough 12.8 09/30/16 09/30/16 09/30/16 19:22 15:02 11:26 WBC RBC Hgb Hct MCV MCH MCHC RDW Plt Count MPV Neut % (Auto) Lymph % (Auto) [place] % (Auto) Eos % (Auto) Baso % (Auto) Neut # (Auto) Lymph # (Auto) [place] # (Auto) Eos # (Auto) Baso # (Auto) Immature Gran % Nucleated RBC % Immature Gran # Nucleated RBCs # Sodium Potassium Chloride Carbon Dioxide Anion Gap BUN Creatinine GFR Calculation BUN/Creatinine Ratio Glucose POC Glucose 131 H 160 H 162 H Calculated Osmolality Calcium Magnesium Vancomycin Trough Preliminary micro results at discharge 09/29/16 18:32 Blood Culture - Preliminary Blood No growth at 1 day 09/29/16 18:11 Blood Culture - Preliminary Blood No growth at 1 day DS: Provider Date of admission: 09/29/16 20:06 Primary care physician: Taiwo Colbert MD Attending physician on admission: Coral Sanchez MD Consults: 09/29/16 21:00 Consult to Pharmacy [CONS] Routine Reason for Pharmacy Consult: Dose/Manage Vancomycin 09/30/16 08:25 Consult to Physician [CONS] Routine Comment: Consulting Provider: Wilfrid Guerrero Discharging clinician: Jose Gates CNP <Kaih Galvez - Last Filed: 10/01/16 11:04> Diagnosis - Discharge Diagnosis (1) Nausea and vomiting Status: Resolved (2) Fever Status: Resolved (3) Altered mental status Status: Resolved (4) Cellulitis Status: Acute (5) Stasis dermatitis of both legs Status: Chronic (6) Diabetes mellitus type 2 in obese Status: Chronic Discharge Plan - Discharge Data Condition at Discharge: Stable Discharge Diet: diabetic diet Activity: resume usual activities as tolerated Hygiene: no restrictions Contact your physician if you experience:: fever over 101, Redness or swelling, Nausea/Vomiting, Shortness of breath, Bleeding - Forms/Instructions Additional Discharge Instructions: Follow up with PCP Dr. Duval within 2 weeks after discharge. Exam - Constitutional Exam: General appearance: over weight, NAD - Head Head exam: Present: normocephalic, atraumatic - Eye Eye exam: Present: EOMI - ENT ENT exam: Present: normal exam - Neck Neck exam: Present: normal inspection - Respiratory Respiratory exam: Present: clear to auscultation bilaterally. Absent: rhonchi, wheezes - Cardiovascular Cardiovascular exam: Present: regular rate and rhythm - GI/Abdominal GI/Abdominal exam: Present: normal bowel sounds, soft. Absent: tenderness, rebound. Rectal eval performed. No evidence of fluctuance nor tenderness consistent with an abscess. Trupti-rectal soft tissues are soft without erythema, nor draining wound. Essentially normal rectal exam. - Extremities Exam Extremities exam: Present: LLE wrapped in pressure dressing. Chronic venous stasis changes evident. No surrounding erythema nor open wounds noted. - Neurological Exam Neurological exam: Present: alert, oriented X3 - Psychiatric Psychiatric exam: Present: normal affect, normal mood - Skin Skin exam: Present: warm, intact
[2016-10-01] MEDS ORDERED: SULFAMETHOX/TRIMETHOPRIM 400-80 MG TABLET PO SCH (10:00)
[2016-10-01 12:26] VITALS: BP 146/79
--- NOTE | 2016-10-01 12:54 | General Surgery Progress Note ---
Assessment and Plan - Time spent with patient Time spent with patient: Less than 30 minutes (1) Stasis dermatitis of both legs Status: Chronic Assessment and plan: Bilateral lower extremity chronic venous stasis disease. Left lower leg is responded well to light compression. There are no ulcerations, and light compression seems to have made a difference. We will now plan to turn his care back over [place] [facility] [place]. Will leave the current dressings in place over the weekend, and have his resume his stockings with the possibility of adding just an [place] bandage over the top of his stockings which she is home. Hopefully they can follow-up with endovenous procedures in [place] in the near future. Current Visit: Yes Subjective Patient reports: Present: feels better Exam - Constitutional Vitals: Period Temp Pulse Resp BP Sys/Redding Pulse Ox Last 24 Hr 97.8 F-100.5 F 86-98 14-20 117-146/62-80 94-97 - Extremities Exam Extremities exam: Present: other (Bilateral lower extremity edema is well controlled.) Results - Labs CBC & BMP: 10/01/16 06:08 10/01/16 06:08 Lab Results: I have reviewed the past 24 hour labs Quality Measures - VTE Contraindication to Pharmacological VTE Prophylaxis: Clinical assessment deems Pt at low risk, no prophalaxis needed
== END 2016-10-01 14:01 | disposition home or self-care (01) | DRG 603 ==
LOC: EDUNIT# → EDBD → N.ED 14:44 → SUATTDRO 20:06 → N.EDINP 20:06 → N.2E 20:48
PROVIDERS: ADMIT Internal Medicine; ATTEND Internal Medicine

== ENCOUNTER 2019-08-10 15:25 | Inpatient (IN) ==
[2019-08-10] MEDS ORDERED: methylPREDNISolone SOD SUC 125 MG/2 ML VIAL IV STA (15:55)
[2019-08-10] MEDS ORDERED: AZITHROMYCIN INJ 500 MG in SODIUM CHLORIDE 0.9% 250 ML IV STA (15:55)
[2019-08-10 17:00] LABS: Basophils % 0.3 % (0.0-0.8); Eosinophils % 0.3 % (0.00-10.9); Hematocrit 46.5 VOL% (42.0-52.0); Hemoglobin 15.1 GM/DL (14.0-18.0); Immature Granulocytes % 0.5 %; Immature Granulocytes Absolute 0.02 #; Lymphocytes # 0.8 10*3/uL (1.4-4.0); Lymphocytes % 19.7 % (21.2-54.2); Mean Corpuscular HGB Conc 32.5 GM/DL (32-36); Mean Corpuscular Volume 87.7 FL (87-102); Mean Platelet Volume 11.1 FL (9.6-12.0); Monocytes % 9.3 % (1.7-12.7); Neutrophils % 69.9 % (38.7-73.9); Platelet Count 215 T/CUMM (130-400); Red Cell Distribution Width 12.9 % (9.3-17.3)
[2019-08-10 17:22] LABS: Alanine Aminotransferase 27 U/L (16-61); Albumin 3.1 G/DL (3.4-5.0); Alkaline Phosphatase 80 U/L (45-117); Aspartate Amino Transferase 41 U/L (0-37); Blood Urea Nitrogen 8 MG/DL (7-18); Calcium 8.5 MG/DL (8.5-10.1); Estimated Glom Filtration Rate 121 ML/MIN; Ferritin 497.9 ng/ml (26-388); Glucose 127 MG/DL (74-106); Osmolality,Calculated 269.1 MOS/KG (273-304); Total Protein 7.5 G/DL (6.4-8.3); Troponin I < 0.015 NG/ML (0.00-0.045)
[2019-08-10] MEDS ORDERED: POTASSIUM BICARB EFFERVESCENT 25 MEQ TABLET PO ONE (17:36)
[2019-08-10 18:05] LABS: Atypical Lymphocytes Few; Lymphocytes 15 % (20-55); Reactive Lymphocytes Few; Segmented Neutrophils 75 % (50-85); Total Cells Counted 100
[2019-08-10 18:07] LABS: Anisocytosis 1+; Hypochromasia Slight; Platelet Estimate Normal
[2019-08-10] MEDS ORDERED: ALUMINUM/MAGNES/SIMETH MAX STR 30 ML UDCUP PO PRN (18:27)
[2019-08-10] MEDS ORDERED: DEXTROSE 50% 25 GM/50 ML SYRINGE IV PRN (18:27)
[2019-08-10] MEDS ORDERED: DEXTROSE 50% 25 GM/50 ML VIAL IV PRN (18:27)
[2019-08-10] MEDS ORDERED: GLUCAGON 1 MG VIAL IM PRN (18:27)
[2019-08-10] MEDS ORDERED: POTASSIUM CHLORIDE 20 MEQ TABLET PO PRN (18:48)
[2019-08-10] MEDS: INSULIN REGULAR 100 UNIT/ML SUBCUT SCH (21:35)
[2019-08-10] MEDS: ENOXAPARIN 40 MG/0.4 ML SYRINGE SUBCUT SCH (22:56)
[2019-08-10] MEDS: ATORVASTATIN 40 MG TABLET PO SCH (22:56)
[2019-08-10] MEDS: HYDROXYCHLOROQUINE 200 MG TABLET PO SCH (22:56)
[2019-08-10] MEDS: FUROSEMIDE 40 MG TABLET PO SCH (22:56)
[2019-08-11] MEDS: lisinopriL 20 MG TABLET PO SCH (08:40)
[2019-08-11] MEDS: FUROSEMIDE 40 MG TABLET PO SCH ×2 (08:40→21:05)
[2019-08-11] MEDS: HYDROXYCHLOROQUINE 200 MG TABLET PO SCH ×2 (08:40→21:05)
[2019-08-11] MEDS: INSULIN REGULAR 100 UNIT/ML SUBCUT SCH ×4 (08:41→21:05)
[2019-08-11] MEDS: PANTOPRAZOLE 40 MG TABLET PO SCH (08:41)
[2019-08-11 12:45] LABS: Basophils % 0.2 % (0.0-0.8); Hematocrit 41.5 VOL% (42.0-52.0); Hemoglobin 14.1 GM/DL (14.0-18.0); Immature Granulocytes % 0.4 %; Immature Granulocytes Absolute 0.02 #; Lymphocytes # 0.4 10*3/uL (1.4-4.0); Lymphocytes % 9.4 % (21.2-54.2); Mean Platelet Volume 10.9 FL (9.6-12.0); Monocytes % 8.6 % (1.7-12.7); Neutrophils % 81.4 % (38.7-73.9); Platelet Count 208 T/CUMM (130-400); Red Blood Count 4.94 MC/CUMM (3.8-5.5); Red Cell Distribution Width 12.6 % (9.3-17.3); White Blood Count 4.7 T/CUMM (4-12)
[2019-08-11 13:08] LABS: Albumin 2.6 G/DL (3.4-5.0); Bilirubin,Total 0.6 MG/DL (0.2-1.0); Calcium 8.2 MG/DL (8.5-10.1); Osmolality,Calculated 282.7 MOS/KG (273-304); Total Protein 6.3 G/DL (6.4-8.3)
[2019-08-11 13:42] LABS: Band Neutrophils 2 % (0-10); Hypochromasia 1+; Lymphocytes 4 % (20-55); Microcytosis 1+; Platelet Estimate Normal; Polychromasia Slight; Segmented Neutrophils 85 % (50-85); Total Cells Counted 100
[2019-08-11] MEDS ORDERED: POTASSIUM CHLORIDE RIDER 20 MEQ in PREMIX 1 EACH IV PRN (14:18)
[2019-08-11] MEDS: POTASSIUM CHLORIDE RIDER 10 MEQ in PREMIX 1 EACH IV PRN ×2 (14:36→16:21)
[2019-08-11] MEDS ORDERED: AZITHROMYCIN INJ 500 MG in SODIUM CHLORIDE 0.9% 250 ML IV SCH (19:00)
[2019-08-11] MEDS: AZITHROMYCIN 250 MG TABLET PO SCH (21:05)
[2019-08-11] MEDS: ENOXAPARIN 40 MG/0.4 ML SYRINGE SUBCUT SCH (21:05)
[2019-08-11] MEDS: ATORVASTATIN 40 MG TABLET PO SCH (21:05)
[2019-08-12 05:30] LABS: Hemoglobin 15.6 GM/DL (14.0-18.0); Immature Granulocytes % 0.4 %; Immature Granulocytes Absolute 0.03 #; Lymphocytes # 0.5 10*3/uL (1.4-4.0); Lymphocytes % 5.8 % (21.2-54.2); Mean Corpuscular HGB Conc 32.5 GM/DL (32-36); Mean Corpuscular Volume 87.9 FL (87-102); Mean Platelet Volume 11.2 FL (9.6-12.0); Monocytes % 5.1 % (1.7-12.7); Neutrophils % 88.7 % (38.7-73.9); Platelet Count 240 T/CUMM (130-400); Red Blood Count 5.46 MC/CUMM (3.8-5.5); Red Cell Distribution Width 12.8 % (9.3-17.3); White Blood Count 7.7 T/CUMM (4-12)
[2019-08-12 06:24] LABS: Albumin 2.5 G/DL (3.4-5.0); Bilirubin,Total 0.8 MG/DL (0.2-1.0); Calcium 8.4 MG/DL (8.5-10.1); Osmolality,Calculated 280.8 MOS/KG (273-304); Total Protein 6.7 G/DL (6.4-8.3)
[2019-08-12] MEDS: INSULIN REGULAR 100 UNIT/ML SUBCUT SCH ×4 (10:10→22:28)
[2019-08-12] MEDS: HYDROXYCHLOROQUINE 200 MG TABLET PO SCH ×2 (10:11→22:29)
[2019-08-12] MEDS: lisinopriL 20 MG TABLET PO SCH (10:11)
[2019-08-12] MEDS ORDERED: POTASSIUM CHLORIDE 20 MEQ TABLET PO ONE (10:11)
[2019-08-12] MEDS: PANTOPRAZOLE 40 MG TABLET PO SCH (10:12)
[2019-08-12] MEDS: FUROSEMIDE 40 MG TABLET PO SCH ×2 (10:12→22:28)
[2019-08-12] MEDS: ZINC SULFATE 220 MG CAPSULE PO SCH (10:12)
[2019-08-12] MEDS: AZITHROMYCIN 250 MG TABLET PO SCH (22:29)
[2019-08-12] MEDS: ENOXAPARIN 40 MG/0.4 ML SYRINGE SUBCUT SCH (22:29)
[2019-08-12] MEDS: ATORVASTATIN 40 MG TABLET PO SCH (22:29)
[2019-08-13 05:47] LABS: Basophils % 0.1 % (0.0-0.8); Hematocrit 50.1 VOL% (42.0-52.0); Hemoglobin 16.8 GM/DL (14.0-18.0); Immature Granulocytes % 0.6 %; Immature Granulocytes Absolute 0.04 #; Lymphocytes # 0.6 10*3/uL (1.4-4.0); Mean Corpuscular HGB Conc 33.5 GM/DL (32-36); Mean Corpuscular Volume 84.8 FL (87-102); Mean Platelet Volume 11.3 FL (9.6-12.0); Monocytes % 5.8 % (1.7-12.7); Neutrophils % 85.5 % (38.7-73.9); Platelet Count 274 T/CUMM (130-400); Red Blood Count 5.91 MC/CUMM (3.8-5.5); Red Cell Distribution Width 12.6 % (9.3-17.3)
[2019-08-13 06:03] LABS: Calcium 9.2 MG/DL (8.5-10.1); Osmolality,Calculated 281.5 MOS/KG (273-304)
[2019-08-13 06:35] LABS: Hypochromasia 1+; Lymphocytes 6 % (20-55); Microcytosis 1+; Platelet Estimate Adequate; Segmented Neutrophils 86 % (50-85); Total Cells Counted 100
[2019-08-13] MEDS: FUROSEMIDE 40 MG TABLET PO SCH ×2 (08:18→21:35)
[2019-08-13] MEDS: lisinopriL 20 MG TABLET PO SCH (08:18)
[2019-08-13] MEDS: HYDROXYCHLOROQUINE 200 MG TABLET PO SCH ×2 (08:18→21:35)
[2019-08-13] MEDS: INSULIN REGULAR 100 UNIT/ML SUBCUT SCH ×4 (08:18→23:14)
[2019-08-13] MEDS: PANTOPRAZOLE 40 MG TABLET PO SCH (08:18)
[2019-08-13 10:07] LABS: ABG Base Excess 7.9 MMOL/L (-2.5-2.5); ABG HCO3 31.5 MMOL/L (20-26); ABG Oxygen Saturation 93.4 % (95-100); ABG PCO2 37.9 MM HG (35-48); ABG PH 7.523 (7.35-7.45); ABG PO2 65.8 MM HG (80-95); ABG TCO2 25.8 MMOL/L (23-27); Allen Test Positive
[2019-08-13] MEDS: cefTRIAXone 1,000 MG in SYRINGE 1 EACH IV SCH (17:15)
[2019-08-13] MEDS: ATORVASTATIN 40 MG TABLET PO SCH (21:35)
[2019-08-13] MEDS: AZITHROMYCIN 250 MG TABLET PO SCH (21:35)
[2019-08-13] MEDS: ENOXAPARIN 40 MG/0.4 ML SYRINGE SUBCUT SCH (21:45)
[2019-08-13] MEDS: ZALEPLON 5 MG CAPSULE PO PRN (21:45)
[2019-08-14 01:02] LABS: ABG HCO3 31.6 MMOL/L (20-26); ABG Oxygen Saturation 91.8 % (95-100); ABG PCO2 37.4 MM HG (35-48); ABG PH 7.528 (7.35-7.45); ABG TCO2 26.1 MMOL/L (23-27)
[2019-08-14 03:13] LABS: Apearance,Urine CLEAR (Clear); Bilirubin,Urine Negative (Negative); Blood, Urine Small mg/dL (Negative); Glucose,Urine (UA) 50 mg/dL (Negative); Ketones,Urine 20 mg/dL (Negative); Mucus,Urine Occasional /LPF (Occasional); Nitrite,Urine Negative (Negative); Protein,Urine 100 MG/DL; RBC,Urine 3 /HPF (0-4); Squamous Epithelial Cell,Urine Occasional /HPF (0-10); Urine Color Yellow (Yellow); WBC,Urine 3 /HPF (0-6)
[2019-08-14 03:19] LABS: Barbiturates Screen,Urine Negative (Negative); Benzodiazepines Screen,Urine Negative (Negative); Cannabinoid Screen,Urine Negative (Negative); Opiate Screen,Urine Negative (Negative); Phencyclidine Screen,Urine Negative (Negative)
[2019-08-14 04:37] LABS: Basophils % 0.1 % (0.0-0.8); Eosinophils % 0.1 % (0.00-10.9); Hematocrit 45.2 VOL% (42.0-52.0); Immature Granulocytes % 0.6 %; Immature Granulocytes Absolute 0.04 #; Lymphocytes # 0.5 10*3/uL (1.4-4.0); Lymphocytes % 7.4 % (21.2-54.2); Mean Corpuscular HGB Conc 33.2 GM/DL (32-36); Mean Corpuscular Volume 86.4 FL (87-102); Monocytes % 5.5 % (1.7-12.7); Neutrophils % 86.3 % (38.7-73.9); Platelet Count 291 T/CUMM (130-400); Red Blood Count 5.23 MC/CUMM (3.8-5.5); Red Cell Distribution Width 12.8 % (9.3-17.3); White Blood Count 6.9 T/CUMM (4-12)
[2019-08-14 05:00] LABS: Calcium 8.6 MG/DL (8.5-10.1); Osmolality,Calculated 281.7 MOS/KG (273-304)
[2019-08-14 05:01] LABS: Hypochromasia 1+
[2019-08-14 05:02] LABS: Burr Cells Slight; Microcytosis 1+; Platelet Estimate Normal
[2019-08-14] MEDS: POTASSIUM CHLORIDE RIDER 10 MEQ in PREMIX 1 EACH IV PRN ×3 (08:24→10:26)
[2019-08-14] MEDS ORDERED: POTASSIUM CHLORIDE RIDER 100 ML IV ONE (08:57)
[2019-08-14] MEDS: INSULIN REGULAR 100 UNIT/ML SUBCUT SCH ×4 (09:21→20:32)
[2019-08-14] MEDS: lisinopriL 20 MG TABLET PO SCH (09:22)
[2019-08-14] MEDS: PANTOPRAZOLE 40 MG TABLET PO SCH (09:22)
[2019-08-14] MEDS: FUROSEMIDE 40 MG TABLET PO SCH ×2 (09:22→20:33)
[2019-08-14] MEDS: ZINC SULFATE 220 MG CAPSULE PO SCH (09:22)
[2019-08-14] MEDS: cefTRIAXone 1,000 MG in SYRINGE 1 EACH IV SCH (12:30)
[2019-08-14] MEDS: SKIN HEALING OINT (AQUAPHOR) 50 GM TUBE TOP SCH (12:45)
[2019-08-14] MEDS: ATORVASTATIN 40 MG TABLET PO SCH (20:33)
[2019-08-14] MEDS: ENOXAPARIN 40 MG/0.4 ML SYRINGE SUBCUT SCH (20:33)
[2019-08-14] MEDS: AZITHROMYCIN 250 MG TABLET PO SCH (20:33)
[2019-08-14] MEDS: ZALEPLON 5 MG CAPSULE PO PRN (20:34)
[2019-08-14] MEDS ORDERED: LORazepam 2 MG/1 ML VIAL IV ONE (22:00)
[2019-08-15 03:44] LABS: ABG Base Excess 6.9 MMOL/L (-2.5-2.5); ABG HCO3 30.9 MMOL/L (20-26); ABG Oxygen Saturation 75.5 % (95-100); ABG PCO2 41.5 MM HG (35-48); ABG TCO2 32.2 MMOL/L (23-27); Allen Test Positive; Pt O2 Delivery Device Other
[2019-08-15 03:46] LABS: ABG PO2 40.6 MM HG (80-95)
[2019-08-15] MEDS ORDERED: ETOMIDATE 20 MG/10 ML VIAL IV ONE ×2 (04:21→04:22)
[2019-08-15] MEDS ORDERED: propofoL 200 MG/20 ML VIAL IV ONE (04:22)
[2019-08-15] MEDS ORDERED: SUCCINYLCHOLINE 200 MG/10 ML VIAL ONE (04:22)
[2019-08-15] MEDS ORDERED: SUCCINYLCHOLINE 200 MG/10 ML VIAL IV ONE (04:23)
[2019-08-15] MEDS: PHENYLEPHRINE DRIP 40 MG/250 ML PREMIX IV PRN ×4 (05:30→23:49)
[2019-08-15 05:49] LABS: Calcium 8.8 MG/DL (8.5-10.1); Osmolality,Calculated 277.4 MOS/KG (273-304)
[2019-08-15 05:54] LABS: ABG Base Excess 5.3 MMOL/L (-2.5-2.5); ABG HCO3 28.9 MMOL/L (20-26); ABG Oxygen Saturation 89.7 % (95-100); ABG PH 7.407 (7.35-7.45); ABG PO2 62.1 MM HG (80-95); ABG TCO2 26.6 MMOL/L (23-27); Allen Test Positive; Pt O2 Delivery Device Ventilator
[2019-08-15] MEDS: INSULIN REGULAR 100 UNIT/ML SUBCUT SCH ×4 (07:59→23:51)
[2019-08-15] MEDS: POTASSIUM CHLORIDE RIDER 10 MEQ in PREMIX 1 EACH IV PRN ×3 (08:44→10:44)
[2019-08-15] MEDS: lisinopriL 20 MG TABLET PO SCH (09:03)
[2019-08-15] MEDS: FUROSEMIDE 40 MG TABLET PO SCH ×2 (09:03→22:02)
[2019-08-15] MEDS: PANTOPRAZOLE 40 MG TABLET PO SCH (09:04)
[2019-08-15] MEDS: HYDROXYCHLOROQUINE 200 MG TABLET PO SCH ×2 (09:06→22:02)
[2019-08-15] MEDS: SKIN HEALING OINT (AQUAPHOR) 50 GM TUBE TOP SCH (09:07)
[2019-08-15] MEDS: cefTRIAXone 1,000 MG in SYRINGE 1 EACH IV SCH (10:00)
[2019-08-15 10:08] LABS: Basophils % 0.4 % (0.0-0.8); Eosinophils # 0.2 10*3/uL (0.0-0.87); Eosinophils % 2.1 % (0.00-10.9); Immature Granulocytes % 1.1 %; Immature Granulocytes Absolute 0.09 #; Lymphocytes % 11.6 % (21.2-54.2); Mean Corpuscular HGB Conc 31.5 GM/DL (32-36); Mean Corpuscular Volume 92.3 FL (87-102); Mean Platelet Volume 12.2 FL (9.6-12.0); Monocytes % 7.1 % (1.7-12.7); Neutrophils % 77.7 % (38.7-73.9); Red Blood Count 4.44 MC/CUMM (3.8-5.5); Red Cell Distribution Width 13.3 % (9.3-17.3); White Blood Count 8.5 T/CUMM (4-12)
[2019-08-15 10:09] LABS: Hemoglobin 12.9 GM/DL (14.0-18.0); Platelet Count 224 T/CUMM (130-400)
[2019-08-15 10:28] LABS: Lymphocytes 16 % (20-55); Platelet Estimate Adequate; Segmented Neutrophils 76 % (50-85); Total Cells Counted 100
[2019-08-15 10:29] LABS: Microcytosis 1+
[2019-08-15] MEDS: POTASSIUM CHLORIDE 20 MEQ/15 ML UDCUP PER TUBE SCH ×5 (10:40→23:49)
[2019-08-15] MEDS ORDERED: FUROSEMIDE 40 MG/4 ML VIAL ONE (14:01)
[2019-08-15] MEDS ORDERED: FUROSEMIDE 40 MG/4 ML VIAL IV ONE (14:05)
[2019-08-15] MEDS: ENOXAPARIN 40 MG/0.4 ML SYRINGE SUBCUT SCH (22:02)
[2019-08-15] MEDS: ATORVASTATIN 40 MG TABLET PO SCH (22:02)
[2019-08-16 04:59] LABS: ABG Base Excess 4.4 MMOL/L (-2.5-2.5); ABG HCO3 29.1 MMOL/L (20-26); ABG Oxygen Saturation 93.3 % (95-100); ABG PCO2 43.2 MM HG (35-48); ABG PH 7.446 (7.35-7.45); ABG PO2 68.9 MM HG (80-95); ABG TCO2 30.4 MMOL/L (23-27); Allen Test Positive; Pt O2 Delivery Device Ventilator
[2019-08-16] MEDS: PHENYLEPHRINE DRIP 40 MG/250 ML PREMIX IV PRN ×4 (05:11→20:45)
[2019-08-16] MEDS: INSULIN REGULAR 100 UNIT/ML SUBCUT SCH ×3 (06:36→17:25)
[2019-08-16 07:32] LABS: Basophils % 0.5 % (0.0-0.8); Eosinophils # 0.3 10*3/uL (0.0-0.87); Eosinophils % 3.4 % (0.00-10.9); Hematocrit 48.4 VOL% (42.0-52.0); Immature Granulocytes % 1.3 %; Immature Granulocytes Absolute 0.11 #; Lymphocytes % 12.1 % (21.2-54.2); Mean Corpuscular HGB Conc 31.6 GM/DL (32-36); Mean Corpuscular Volume 90.3 FL (87-102); Mean Platelet Volume 11.4 FL (9.6-12.0); Monocytes % 6.8 % (1.7-12.7); Neutrophils % 75.9 % (38.7-73.9); Platelet Count 223 T/CUMM (130-400); Red Cell Distribution Width 13.2 % (9.3-17.3); White Blood Count 8.3 T/CUMM (4-12)
[2019-08-16 07:33] LABS: Hemoglobin 15.3 GM/DL (14.0-18.0); Red Blood Count 5.36 MC/CUMM (3.8-5.5)
[2019-08-16 08:00] LABS: Atypical Lymphocytes Few; Eosinophils 9 % (0-10); Lymphocytes 18 % (20-55); Segmented Neutrophils 61 % (50-85); Total Cells Counted 100
[2019-08-16] MEDS: cefTRIAXone 1,000 MG in SYRINGE 1 EACH IV SCH (08:00)
[2019-08-16 08:02] LABS: Hypochromasia 1+; Microcytosis 1+; Platelet Estimate Normal
[2019-08-16 08:19] LABS: Calcium 8.5 MG/DL (8.5-10.1); Osmolality,Calculated 294.3 MOS/KG (273-304)
[2019-08-16] MEDS: SKIN HEALING OINT (AQUAPHOR) 50 GM TUBE TOP SCH (08:46)
[2019-08-16] MEDS: PANTOPRAZOLE 40 MG TABLET PO SCH (08:46)
[2019-08-16] MEDS: HYDROXYCHLOROQUINE 200 MG TABLET PO SCH (08:46)
[2019-08-16] MEDS: ZINC SULFATE 220 MG CAPSULE PO SCH (08:47)
[2019-08-16] MEDS: FUROSEMIDE 40 MG TABLET PO SCH ×2 (08:47→21:09)
[2019-08-16] MEDS: PANTOPRAZOLE 40 MG VIAL IV SCH (08:47)
[2019-08-16] MEDS: fentaNYL INJ 1,250 MCG in SODIUM CHLORIDE 0.9% 225 ML IV PRN ×3 (09:30→19:45)
[2019-08-16] MEDS ORDERED: POTASSIUM CHLORIDE 20 MEQ/15 ML UDCUP PER TUBE ONE (12:00)
[2019-08-16] MEDS: ENOXAPARIN 40 MG/0.4 ML SYRINGE SUBCUT SCH (21:11)
[2019-08-16] MEDS: ATORVASTATIN 40 MG TABLET PO SCH (21:11)
[2019-08-17] MEDS: fentaNYL INJ 1,250 MCG in SODIUM CHLORIDE 0.9% 225 ML IV PRN ×6 (00:13→23:05)
[2019-08-17] MEDS: INSULIN REGULAR 100 UNIT/ML SUBCUT SCH ×5 (00:54→23:40)
[2019-08-17] MEDS: PHENYLEPHRINE DRIP 40 MG/250 ML PREMIX IV PRN ×5 (02:46→23:35)
[2019-08-17 04:56] LABS: ABG Base Excess 3.8 MMOL/L (-2.5-2.5); ABG HCO3 27.7 MMOL/L (20-26); ABG Oxygen Saturation 93.8 % (95-100); ABG PCO2 51.5 MM HG (35-48); ABG PH 7.378 (7.35-7.45); ABG PO2 71.3 MM HG (80-95); ABG TCO2 26.2 MMOL/L (23-27); Allen Test Positive; Pt O2 Delivery Device Ventilator
[2019-08-17 05:59] LABS: Calcium 8.6 MG/DL (8.5-10.1); Osmolality,Calculated 295.3 MOS/KG (273-304)
[2019-08-17 06:24] LABS: Basophils % 0.4 % (0.0-0.8); Eosinophils # 0.4 10*3/uL (0.0-0.87); Eosinophils % 4.4 % (0.00-10.9); Hematocrit 36.9 VOL% (42.0-52.0); Hemoglobin 11.4 GM/DL (14.0-18.0); Immature Granulocytes % 1.9 %; Immature Granulocytes Absolute 0.16 #; Lymphocytes # 0.8 10*3/uL (1.4-4.0); Lymphocytes % 9.1 % (21.2-54.2); Mean Corpuscular HGB Conc 30.9 GM/DL (32-36); Mean Corpuscular Volume 91.8 FL (87-102); Mean Platelet Volume 11.2 FL (9.6-12.0); Monocytes % 7.2 % (1.7-12.7); Red Blood Count 4.02 MC/CUMM (3.8-5.5); Red Cell Distribution Width 13.6 % (9.3-17.3)
[2019-08-17 06:25] LABS: White Blood Count 8.5 T/CUMM (4-12)
[2019-08-17 06:26] LABS: Platelet Count 164 T/CUMM (130-400)
[2019-08-17 06:37] LABS: Hypochromasia Slight
[2019-08-17 06:38] LABS: Burr Cells Slight; Microcytosis 1+
[2019-08-17 06:39] LABS: Platelet Estimate Adequate; Target Cells Slight
[2019-08-17] MEDS: cefTRIAXone 1,000 MG in SYRINGE 1 EACH IV SCH (08:08)
[2019-08-17] MEDS: PANTOPRAZOLE 40 MG VIAL IV SCH (08:09)
[2019-08-17] MEDS: FUROSEMIDE 40 MG TABLET PO SCH ×2 (08:09→21:00)
[2019-08-17] MEDS: SKIN HEALING OINT (AQUAPHOR) 50 GM TUBE TOP SCH (08:09)
[2019-08-17] MEDS ORDERED: SODIUM CHLORIDE 0.9% 1,000 ML IV PRN (13:39)
[2019-08-17] MEDS ORDERED: ROCURONIUM 500 MG in SODIUM CHLORIDE 0.9% 500 ML IV PRN (16:35)
[2019-08-17] MEDS: INSULIN GLARGINE 100 UNIT/ML SUBCUT SCH (20:59)
[2019-08-17] MEDS: ENOXAPARIN 40 MG/0.4 ML SYRINGE SUBCUT SCH (21:00)
[2019-08-17] MEDS ORDERED: INSULIN GLARGINE 100 UNIT/ML SUBCUT SCH (21:00)
[2019-08-17] MEDS: ATORVASTATIN 40 MG TABLET PO SCH (21:00)
[2019-08-18] MEDS: fentaNYL INJ 1,250 MCG in SODIUM CHLORIDE 0.9% 225 ML IV PRN ×2 (03:04→07:09)
[2019-08-18] MEDS: PHENYLEPHRINE DRIP 40 MG/250 ML PREMIX IV PRN ×6 (03:54→22:18)
[2019-08-18 04:59] LABS: ABG Base Excess -0.1 MMOL/L (-2.5-2.5); ABG HCO3 24.3 MMOL/L (20-26); ABG Oxygen Saturation 97.6 % (95-100); ABG PCO2 61.5 MM HG (35-48); ABG PH 7.274 (7.35-7.45); ABG TCO2 25.3 MMOL/L (23-27)
[2019-08-18 05:57] LABS: Basophils % 0.4 % (0.0-0.8); Eosinophils # 0.3 10*3/uL (0.0-0.87); Eosinophils % 2.6 % (0.00-10.9); Hematocrit 42.5 VOL% (42.0-52.0); Immature Granulocytes % 1.6 %; Immature Granulocytes Absolute 0.18 #; Lymphocytes # 0.8 10*3/uL (1.4-4.0); Mean Corpuscular HGB Conc 29.9 GM/DL (32-36); Mean Corpuscular Volume 94.2 FL (87-102); Mean Platelet Volume 11.8 FL (9.6-12.0); Monocytes % 9.4 % (1.7-12.7); Platelet Count 236 T/CUMM (130-400); Red Blood Count 4.51 MC/CUMM (3.8-5.5); Red Cell Distribution Width 14.3 % (9.3-17.3); White Blood Count 11.4 T/CUMM (4-12)
[2019-08-18 06:01] LABS: Calcium 8.7 MG/DL (8.5-10.1); Osmolality,Calculated 303.1 MOS/KG (273-304)
[2019-08-18 06:04] LABS: Hemoglobin 12.7 GM/DL (14.0-18.0)
[2019-08-18] MEDS: INSULIN REGULAR 100 UNIT/ML SUBCUT SCH ×3 (06:54→19:02)
[2019-08-18] MEDS: PANTOPRAZOLE 40 MG VIAL IV SCH (08:00)
[2019-08-18] MEDS: cefTRIAXone 1,000 MG in SYRINGE 1 EACH IV SCH (08:00)
[2019-08-18] MEDS: SKIN HEALING OINT (AQUAPHOR) 50 GM TUBE TOP SCH (08:00)
[2019-08-18] MEDS: fentaNYL INJ 2,500 MCG in SODIUM CHLORIDE 0.9% 450 ML IV PRN ×2 (08:01→15:31)
[2019-08-18] MEDS ORDERED: FUROSEMIDE 80 MG TABLET PO SCH (09:00)
[2019-08-18] MEDS: methylPREDNISolone SOD SUC 40 MG/1 ML VIAL IV SCH ×2 (11:30→18:30)
[2019-08-18] MEDS: HEPARIN 5,000 UNIT/1 ML VIAL SUBCUT SCH ×2 (11:30→20:45)
[2019-08-18] MEDS: LACTATED RINGERS 1,000 ML IV SCH ×2 (12:10→22:10)
[2019-08-18] MEDS: ACETAMINOPHEN 325 MG/10.15 ML UDCUP PO PRN ×2 (16:00→20:30)
[2019-08-18] MEDS: INSULIN GLARGINE 100 UNIT/ML SUBCUT SCH (20:45)
[2019-08-18] MEDS: ATORVASTATIN 40 MG TABLET PO SCH (20:45)
[2019-08-19] MEDS: INSULIN REGULAR 100 UNIT/ML SUBCUT SCH ×4 (00:30→17:33)
[2019-08-19] MEDS: methylPREDNISolone SOD SUC 40 MG/1 ML VIAL IV SCH ×3 (01:25→16:39)
[2019-08-19] MEDS: fentaNYL INJ 2,500 MCG in SODIUM CHLORIDE 0.9% 450 ML IV PRN (01:26)
[2019-08-19] MEDS: PHENYLEPHRINE DRIP 40 MG/250 ML PREMIX IV PRN ×2 (01:38→05:49)
[2019-08-19 03:59] LABS: ABG Base Excess -8.9 MMOL/L (-2.5-2.5); ABG HCO3 17.2 MMOL/L (20-26); ABG Oxygen Saturation 89.8 % (95-100); ABG PO2 66.3 MM HG (80-95); ABG TCO2 21.9 MMOL/L (23-27)
[2019-08-19 04:10] LABS: ABG PH 7.093 (7.35-7.45)
[2019-08-19 04:11] LABS: ABG PCO2 77.9 MM HG (35-48)
[2019-08-19] MEDS: ACETAMINOPHEN 325 MG/10.15 ML UDCUP PO PRN (04:22)
[2019-08-19 05:22] LABS: Calcium 8.8 MG/DL (8.5-10.1); Osmolality,Calculated 311.5 MOS/KG (273-304)
[2019-08-19] MEDS ORDERED: SODIUM BICARBONATE 50 MEQ/50 ML VIAL IV ONE (05:44)
[2019-08-19 06:13] LABS: Allen Test Positive; Pt O2 Delivery Device Ventilator
[2019-08-19 06:17] LABS: ABG Base Excess -8.1 MMOL/L (-2.5-2.5); ABG HCO3 17.9 MMOL/L (20-26); ABG Oxygen Saturation 90.2 % (95-100); ABG PCO2 63.5 MM HG (35-48); ABG PO2 62.8 MM HG (80-95); ABG TCO2 20.4 MMOL/L (23-27)
[2019-08-19 06:27] LABS: Basophils % 0.2 % (0.0-0.8); Hematocrit 47.3 VOL% (42.0-52.0); Hemoglobin 13.5 GM/DL (14.0-18.0); Immature Granulocytes % 1.9 %; Immature Granulocytes Absolute 0.32 #; Lymphocytes # 0.6 10*3/uL (1.4-4.0); Lymphocytes % 3.7 % (21.2-54.2); Mean Corpuscular HGB Conc 28.5 GM/DL (32-36); Mean Corpuscular Volume 97.7 FL (87-102); Mean Platelet Volume 12.3 FL (9.6-12.0); Neutrophils % 89.2 % (38.7-73.9); Platelet Count 284 T/CUMM (130-400); Red Blood Count 4.84 MC/CUMM (3.8-5.5); Red Cell Distribution Width 14.9 % (9.3-17.3)
[2019-08-19 06:29] LABS: ABG PH 7.156 (7.35-7.45)
[2019-08-19 06:37] LABS: Band Neutrophils 2 % (0-10); Lymphocytes 4 % (20-55); Platelet Estimate Adequate; Segmented Neutrophils 91 % (50-85); Total Cells Counted 100
[2019-08-19] MEDS: cefTRIAXone 1,000 MG in SYRINGE 1 EACH IV SCH (08:45)
[2019-08-19] MEDS: SKIN HEALING OINT (AQUAPHOR) 50 GM TUBE TOP SCH (09:00)
[2019-08-19] MEDS: HEPARIN 5,000 UNIT/1 ML VIAL SUBCUT SCH ×2 (09:39→21:00)
[2019-08-19] MEDS: PANTOPRAZOLE 40 MG VIAL IV SCH (09:39)
[2019-08-19] MEDS ORDERED: DIGOXIN 0.5 MG/2 ML AMP IV ONE ×2 (10:58→13:18)
[2019-08-19] MEDS: LACTATED RINGERS 1,000 ML IV SCH ×2 (12:46→17:49)
[2019-08-19] MEDS ORDERED: INSULIN GLARGINE 100 UNIT/ML SUBCUT SCH (14:46)
[2019-08-19] MEDS: ATORVASTATIN 40 MG TABLET PO SCH (21:00)
[2019-08-19 23:31] VITALS: BP 56/39
[2019-08-20] MEDS ORDERED: DIGOXIN 0.125 MG TABLET PO SCH (13:00)
== END 2019-08-20 00:45 | disposition expired | DRG 208 ==
LOC: N.ED 15:25 → N.EDINP 18:27 → SUATTDRO 18:27 → N.EDINP 20:20 → N.2E 21:38 → N.ICU 08-13 08:55 → N.CC 08-18 18:50
PROVIDERS: ADMIT Family Medicine; ATTEND Internal Medicine